=== PATIENT | male | born 1945 | race Caucasian/White ===

== ENCOUNTER 2016-09-11 06:31 | Day surgery (SDC) | payer MEDICARE, BC ==
[~2016-09-11 06:31] MED LIST: Lactated Ringers 1,000 ML IV SCH
--- NOTE | 2016-09-11 07:04 | PCM.PREANE ---
Preanesthetic Assessment - Anesthesia/Transfusion/Family Hx Anesthesia History: Prior Anesthesia Without Reaction Family History of Anesthesia Reaction: No Transfusion History: No Prior Transfusion(s) Intubation History: Unknown - Review of Systems General: No Symptoms Pulmonary: No Symptoms Cardiovascular: No Symptoms Gastrointestinal: No symptoms Neurological: No Symptoms Other: Reports: None - Physical Assessment O2 Sat by Pulse Oximetry: 96 Respiratory Rate: 16 Vital Signs: Last Vital Signs Temp 36.2 C 09/11/16 06:39 Pulse 42 L 09/11/16 06:39 Resp 16 09/11/16 06:39 BP 127/73 09/11/16 06:39 Pulse Ox 96 09/11/16 06:39 Height: 155.45 m Weight: 86.183 kg ASA Class: 2 Mental Status: Alert & Oriented x3 Airway Class: Mallampati = 2 Dentition: Reports: Normal Dentition, [place](s) (x1 upper front) Thyro-Mental Finger Breadths: 3 Mouth Opening Finger Breadths: 3 ROM/Head Extension: Full Lungs: Clear to auscultation, Normal respiratory effort Cardiovascular: Regular Rate, Regular Rhythm - Allergies Allergies/Adverse Reactions: Allergies Allergy/AdvReac Type Severity Reaction Status Date / Time No Known Allergies Allergy Verified 10/24/13 10:51 - Blood Blood Available: No - Anesthesia Plan Pre-Op Medication Ordered: None - Acknowledgements Anesthesia Type Planned: MAC Pt an Appropriate Candidate for the Planned Anesthesia: Yes Alternatives and Risks of Anesthesia Discussed w Pt/Guardian: Yes Pt/Guardian Understands and Agrees with Anesthesia Plan: Yes PreAnesthesia Questionnaire HEENT History: Reports: Allergic Rhinitis Cardiovascular History: Reports: Arrhythmia, High Cholesterol, Other (See Below ) (HR today 40 bpm. Very good exercize tolerance. Holter monitor 3 years ago- occasional skipped beats per patient) Gastrointestinal History: Reports: Diverticulosis, GERD Genitourinary History: Reports: BPH - Past Surgical History Head Surgeries/Procedures: Reports: None HEENT Surgical History: Reports: Cataract Surgery GI Surgical History: Reports: Colonoscopy (), Hernia, Inguinal Male Surgical History: Reports: None - SUBSTANCE USE Smoking Status *Q: Former Smoker Days Per Week of Alcohol Use: 7 Number of Drinks Per Day: 2 Total Drinks Per Week: 14 Recreational Drug Use History: No - HOME MEDS Home Medications: Home Meds Ranitidine HCl 150 mg PO ASDIRECTED PRN 09/07/16 [History] atorvaSTATin Calcium [Atorvastatin Calcium] 40 mg PO DAILY 09/07/16 [History] Aspirin [Marin Aspirin] 81 mg PO DAILY 09/08/16 [History] Lutein/Minerals/Vit A,C & E [Ocuvite] 1 tab PO DAILY 09/08/16 [History] Tamsulosin HCl [Flomax] 0.4 mg PO DAILY 09/08/16 [History] - CURRENT (IN HOUSE) MEDS Current Meds: Current Medications Lactated Ringer's (Ringers, Lactated) 1,000 mls @ 125 mls/hr IV ASDIRECTED ROSARIO Last Admin: 09/11/16 06:43 Dose: 125 mls/hr
[2016-09-11] MEDS ORDERED: Lidocaine 2% 5 ML SDV ONE (07:13)
[2016-09-11] MEDS ORDERED: Propofol 200 MG/20 ML SDV ONE ×2 (07:13→08:21)
[2016-09-11] MEDS ORDERED: fentaNYL 100 MCG/2 ML SDV ONE (07:14)
[2016-09-11] MEDS ORDERED: Midazolam 1 MG/ML 2 ML SDV ONE (07:14)
[2016-09-11] MEDS ORDERED: Lactated Ringers 1,000 ML IV SCH (08:15)
--- NOTE | 2016-09-11 08:17 | PCM.OPNOTE ---
- General Post-Op/Procedure Note Date of Surgery/Procedure: 09/11/16 Operative Procedure(s): Colonoscopy Pre Op Diagnosis: Desire for colorectal cancer screening Post-Op Diagnosis: Sigmoid diverticulosis Anesthesia Technique: MAC (ASA II) Primary Surgeon: Baldev Harris Drain/Tube Comments:: Dictation [id number]. CPT code 97049 Condition: Good
[2016-09-11 08:46] VITALS: BP 129/83
--- NOTE | 2016-09-11 09:12 | OR ---
SURGEON: Baldev Harris M.D. DATE OF PROCEDURE: 09/11/2016 OPERATION PERFORMED: Colonoscopy. ANESTHESIA: MAC. ASA CLASSIFICATION: II. PREOPERATIVE DIAGNOSIS: Desire for colorectal cancer screening. POSTOPERATIVE DIAGNOSIS: Sigmoid diverticulosis. DESCRIPTION OF PROCEDURE: The patient was taken to the endoscopy room and positioned on the endoscopy table in the left lateral decubitus position. Time-out was called for appropriate identification of the patient and procedure. Monitored anesthesia care was provided. The colonoscope was inserted into the rectum and advanced with minimal difficulty to the cecum. Cecum was identified by internal landmarks and external pressure. The colonoscope was retroflexed in the cecum to visualize the ascending colon from below. The colonoscope was then straightened and slowly withdrawn. The cecum, ascending colon, hepatic flexure, transverse colon, splenic flexure, and descending colon showed no tumors, polyps, diverticula, angiodysplasia, or evidence of inflammatory bowel disease. Moderate sigmoid diverticulosis was noted. No stricture, spasm, or bleeding was noted. No polyps were encountered in the sigmoid colon. The colonoscope was withdrawn to the rectum and retroflexed to visualize the anal orifice from above. No tumors, polyps, or acute hemorrhoidal changes were noted. There were some minor chronic internal hemorrhoids. The colonoscope was then straightened, the rectum aspirated, and the colonoscope removed. The patient tolerated the procedure well and was taken to recovery room in stable condition. SINGH [email or web address] /[id number]
== END 2016-09-11 08:44 | disposition home or self-care (01) ==
LOC: MW.SDS 06:31
PROVIDERS: ATTEND Surgery
PROC: 0DJD8ZZ Inspection of Lower Intestinal Tract, Via Natural or Artificial Opening Endoscopic (ICD-10-PCS; principal; 2016-09-11)
DX: Z12.11 Encounter for screening for malignant neoplasm of colon (principal); K57.30 Diverticulosis of large intestine without perforation or abscess without bleeding; K64.8 Other hemorrhoids; E78.00 Pure hypercholesterolemia, unspecified; K21.9 Gastro-esophageal reflux disease without esophagitis; N40.0 Benign prostatic hyperplasia without lower urinary tract symptoms; Z87.891 Personal history of nicotine dependence; Z79.82 Long term (current) use of aspirin; Z79.899 Other long term (current) drug therapy; Z98.890 Other specified postprocedural states
CPT/HCPCS: G0121; J2250; J3010; J7120; J2704

== ENCOUNTER → 2023-10-01 | Day surgery (SDC) | payer MEDICARE, BC ==
[~2023-10-01] MED LIST changes: +Glycopyrrolate 0.2 MG/ML SDV ONE; +Lidocaine 2% 5 ML SDV ONE; +ePHEDrine 50 MG/ML SDV ONE; +propofoL 50 ML ONE
[2023-10-01] MEDS: Lactated Ringers 1,000 ML IV SCH (07:55)
[2023-10-01 10:08] VITALS: BP 125/79; PULSE 76
== END ==
LOC: MW.SDS 07:21
PROVIDERS: ATTEND Surgery
DX: K29.40 Chronic atrophic gastritis without bleeding (principal); B96.81 Helicobacter pylori [H. pylori] as the cause of diseases classified elsewhere; K21.00 Gastro-esophageal reflux disease with esophagitis, without bleeding; K31.A0 Gastric intestinal metaplasia, unspecified; K57.30 Diverticulosis of large intestine without perforation or abscess without bleeding; D64.9 Anemia, unspecified; I10 Essential (primary) hypertension; E78.00 Pure hypercholesterolemia, unspecified; N40.0 Benign prostatic hyperplasia without lower urinary tract symptoms; Z87.891 Personal history of nicotine dependence; Z79.899 Other long term (current) drug therapy
CPT/HCPCS: 43239; 45378; 88305; 88342; J2704; J3490; J7120; 00813; 99100